=== PATIENT | male | born 1940 | race Caucasian/White ===

== ENCOUNTER 2019-08-26 06:00 | Outpatient (CLI) | payer MEDICARE, OTHER, SELFPAY ==
--- NOTE | 2019-08-29 05:56 | ONC FU_ITS ---
Dr. Moreno Patient Follow-Up Note Patient: Colt Jean Unit #: [id number]: 1940 Dicatated By: Sudarshan Moreno M.D.Date of Visit:Aug 26, 2019 Onc Med Follow-up/Prog Note Chief Complaint: Hemochromatosis. History of Present Illness: This is a 78 year-old man with hereditary hemochromatosis. The hemochromatosis was initially diagnosed in April 2011. His ferritin level was just under 1500 ng/mL. 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 He was started on a phlebotomy program. As of February 2012 the ferritin was down to 96 ng/mL. He had then continued phlebotomies on an every 3-month schedule. He was seen for a followup visit in August 2016. At that time he reported having low energy. He was mildly anemic with hypochromic/microcytic red cell indices. Given those findings, I opted to stop his phlebotomies. They were subsequently restarted, but with the interval decreased to every 6 months. His history includes severe degenerative arthritis, mainly affecting the hips and knees. He underwent total hip arthroplasty on the in right in January 2014 and on the left in April 2014. His other medical illnesses include hypertension, hypertriglyceridemia, and stage III chronic kidney disease. He has a history of smoking 1 pack of cigarettes daily for 40 years. He quit smoking in 2004. INTERIM HISTORY: He is seen for a scheduled visit. He has been feeling good generally. He says his energy is pretty good. Activity has been limited, mainly due to the weather. He has good appetite. He has no fever or night sweats. He has had a little sinus trouble. He has no shortness of breath, cough, or chest pain. He occasionally has heartburn. Bowel function has been adequate with stool softeners. He has no complaints. He currently is not having any significant joint or bone pain. He occasionally has headache. He has no focal neurologic symptoms. Medications: Aspirin 1 (81 mg) Tablet Oral daily, Ativan 1 (0.5 mg) Tablet Oral q 8 hours PRN, Klor-Con M20 1 (20 meq) Tablet, controlled release Oral b.i.d., Magnesium Oxide 1 (400 mg) Capsule Oral daily, Norvasc 1 (10 mg) Tablet Oral daily, Senna-S 1 (8.6-50 mg) Tablet Oral b.i.d., ZyrTEC Allergy 1 (10 mg) Capsule Oral daily Allergies: compazine, Hydrocodone-Acetaminophen, Lisinopril, and OxyCODONE HCl. Review of Systems: Constitutional - His energy is pretty good. Activity is limited due to the weather. Appetite is good and weight is stable. No fever, chills, hot flashes, or night sweats. ECOG score is 1, ENMT - He has a little sinus trouble. No mouth sores. No difficulty swallowing, Hematologic/Lymphatic - No abnormal bruising or bleeding, Respiratory - No shortness of breath. No cough. No pleuritic pain or hemoptysis, Cardiovascular - No angina pain. No palpitations, Gastrointestinal - No nausea or vomiting. He occasionally has heartburn. Bowels have been OK with stool softeners. No blood in the stool or black stools, Genitourinary (M) - No dysuria or hematuria. No urinary frequency. No urgency or incontinence, Musculoskeletal - He currently is not having any significant joint or bone pain, Neurologic - He occasionally has headache. No dizziness. No numbness/paresthesias or other focal neurologic symptoms, Psychiatric - No anxiety or depression. He usually sleeps OK. Vital Signs: Performed on Aug 26, 2019 12:50 Height - 70.00 in Weight - 178 lbs (HIGH) BSA - 1.99 sq.m BMI - 25.54 Temperature - 98.4 F Pulse - 94 /min Respiration - 18 /min BP - 141/82 mm(hg) (HIGH) O2 Sat - 97 % Pain - 0 Physical Examination: Constitutional - He looks good generally, Eyes - Sclerae nonicteric. Conjunctivae clear, ENMT - No lesions noted in the oral cavity, Hematologic/Lymphatic - No cervical, clavicular, or axillary adenopathy, Respiratory - Lungs are clear with good air movement bilaterally, Cardiovascular - Heart rythm is regular. There is a II/ systolic murmur. There is no gallop or rub noted, Abdomen - Soft. Liver and spleen are not enlarged. There is no abdominal mass or ascites noted and there is no inguinal adenopathy, Extremities - No edema. Pedal pulses are palpable bilaterally, Integumentary - There is a raised skin lesion on the left cheek which appears consistent with a basal cell carcinoma, Neurologic - No focal neurologic deficits noted. Lab/Imaging: Test performed on Aug 21, 2019 09:38 Ferritin 89.2 ng/mL % Iron Saturation 27 % Iron, Total 67 mcg/dL TIBC 246 mcg/dL Test performed on Aug 21, 2019 08:59 Glucose 104 mg/dL BUN 13 mg/dL Creatinine 0.97 mg/dL Cr Clearance (Est) 72.74 mL/min Sodium 138 mmol/L Potassium 4.1 mmol/L Chloride 99 mmol/L CO2 25 mmol/L Calcium 10.1 mg/dL Protein, Total 8.1 g/dL Albumin 4.7 g/dL Bilirubin, Total 0.3 mg/dL Alkaline Phosphatase 128 IU/L AST (SGOT) 29 IU/L ALT (SGPT) 35 IU/L WBC 5.8 10^9/L RBC 4.80 10^12/L HGB 13.9 g/dL HCT 42.5 % MCV 88.5 fl MCH 29.0 pg MCHC 32.7 g/dL RDW 14.6 % Platelet Count 131 10^9/L MPV 12.0 fL Neutrophils (Gran) 2.67 10^9/L Lymphocytes 2.33 10^9/L Monocytes 0.43 10^9/L Eosinophils 0.28 10^9/L Basophils 0.08 10^9/L Manual Lymphocytes 40 % Manual Monocytes 7 % Manual Eosinophils 5 % Manual Basophils 1 % Impression: 1. Patient with hereditary hemochromatosis. 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 His ferritin level has come down to an acceptable level with phlebotomy. 2. He has severe degenerative arthritis, but he has had significant improvement following bilateral total hip arthroplasty in 2013. His other medical illnesses include: 3. Hypertension. 4. Hyperlipidemia. 5. Stage III chronic kidney disease. His ferritin level had then remained slightly above target range, and he had continued phlebotomis every 2 months. On his visit in August 2016 he was mildly anemic with hypochromic/microcytic red cell indices. With those findings, I had stopped his phlebotomies. He then continued to have some fatigue, though his hemoglobin level had subsequently recovered to normal. During his further follow-up there was a gradual increase in his ferritin level and transferrin saturation and he had subsequently restarted phlebotomies, but with the frequency reduced to every 6 months. With that schedule his transferrin saturation and serum ferritin have remained in target range. His overall clinical status appears stable. However, he does have a new skin lesion on the left cheek which appears consistent with a basal cell carcinoma. Plan: He will continue on an every 6-month lab and phlebotomy schedule. I will see him again in one year. In the meantime, I will arrange for him to see a surgeon for excision of the skin lesion. Signed By: Sudarshan Moreno M.D. <<Signature on File>>
== END 2019-08-26 06:01 | disposition home or self-care (01) ==
PROVIDERS: Family Provider Physician Assistant Medical; PCP Physician Assistant Medical; Visit Provider Internal Medicine Medical Oncology
DX: E83.110 Hereditary hemochromatosis (principal); C44.319 Basal cell carcinoma of skin of other parts of face; M17.0 Bilateral primary osteoarthritis of knee; E78.1 Pure hyperglyceridemia; I12.9 Hypertensive chronic kidney disease with stage 1 through stage 4 chronic kidney disease, or unspecified chronic kidney disease; N18.3 Chronic kidney disease, stage 3 (moderate); E78.5 Hyperlipidemia, unspecified; Z79.82 Long term (current) use of aspirin; Z87.891 Personal history of nicotine dependence; Z96.643 Presence of artificial hip joint, bilateral
CPT/HCPCS: 99214

== ENCOUNTER → 2019-09-23 12:46 | Outpatient (BNVA) | payer MEDICARE, OTHER, SELFPAY | PROVIDERS: Family Provider Physician Assistant Medical; PCP Physician Assistant Medical; Visit Provider Otolaryngology | DX: L98.9 Disorder of the skin and subcutaneous tissue, unspecified (principal) | CPT/HCPCS: 99204; 99214 ==

== ENCOUNTER 2020-09-21 11:06 | Outpatient (CLI) | payer MEDICARE, OTHER, SELFPAY ==
--- NOTE | 2020-09-21 18:57 | ONC FU_ITS ---
Dr. Moreno Patient Follow-Up Note Patient: Colt Jean Unit #: [id number]: 1940 Dicatated By: Sudarshan Moreno M.D.Date of Visit:Sep 21, 2020 Onc Med Follow-up/Prog Note Chief Complaint: Hemochromatosis. History of Present Illness: This is a 79 year-old man with hereditary hemochromatosis. The hemochromatosis was initially diagnosed in April 2011. His ferritin level was just under 1500 ng/mL. 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 He was started on a phlebotomy program. As of February 2012 the ferritin was down to 96 ng/mL. He had then continued phlebotomies on an every 3-month schedule. He was seen for a followup visit in August 2016. At that time he reported having low energy. He was mildly anemic with hypochromic/microcytic red cell indices. Given those findings, I opted to stop his phlebotomies. They were subsequently restarted, but with the interval decreased to every 6 months. His history includes severe degenerative arthritis, mainly affecting the hips and knees. He underwent total hip arthroplasty on the in right in January 2014 and on the left in April 2014. His other medical illnesses include hypertension, hypertriglyceridemia, and stage III chronic kidney disease. He has a history of smoking 1 pack of cigarettes daily for 40 years. He quit smoking in 2004. INTERIM HISTORY: He has been feeling pretty good generally. He says he does not have a lot of energy, but he is still doing light work. ECOG score is 1. His appetite has been good. He has no fever or night sweats. He has a little bit of sinus drainage. He does not complain of cough and he does not have shortness of breath or chest pain. He has no GI or complaints. His hips tend to get a little sore at night, but they have not otherwise been painful since his hip replacements. He says his knees have been getting a little worse, left more so than right, more due to having a catch then actually being painful. He has just occasional headache. He sometimes has orthostatic dizziness. He has no numbness/paresthesia or other focal neurologic symptoms. Medications: Aspirin 1 (81 mg) Tablet Oral daily, Ativan 1 (0.5 mg) Tablet Oral q 8 hours PRN, Klor-Con M20 1 (20 meq) Tablet, controlled release Oral b.i.d., Magnesium Oxide 1 (400 mg) Capsule Oral daily, Norvasc 1 (10 mg) Tablet Oral daily, Senna-S 1 (8.6-50 mg) Tablet Oral b.i.d., ZyrTEC Allergy 1 (10 mg) Capsule Oral daily Allergies: compazine, Hydrocodone-Acetaminophen, Lisinopril, and OxyCODONE HCl. Vital Signs: Weight is 180 pounds. Blood pressure 126/78, pulse 65, respirations 18, temp 97.6 degrees, oxygen saturation 98%. Physical Examination: Constitutional - He looks good generally, Eyes - Sclerae nonicteric. Conjunctivae clear, ENMT - No lesions noted in the oral cavity, Hematologic/Lymphatic - No cervical, clavicular, or axillary adenopathy, Respiratory - Lungs are clear with good air movement bilaterally, Cardiovascular - Heart rythm is regular. There is a II/ systolic murmur. There is no gallop or rub noted, Abdomen - Soft. Liver and spleen are not enlarged. There is no abdominal mass or ascites noted and there is no inguinal adenopathy, Extremities - No edema, Neurologic - No focal neurologic deficits noted. Lab/Imaging: Test performed on Sep 20, 2020 13:46 HCT 42.5 % HGB 14.4 g/dL Test performed on Sep 20, 2020 08:30 % Iron Saturation 45 % Iron, Total 114 mcg/dL TIBC 253 mcg/dL Test performed on Sep 17, 2020 07:55 Glucose 106 mg/dL BUN 22 mg/dL Creatinine 1.18 mg/dL Cr Clearance (Est) 59.87 mL/min Sodium 137 mmol/L Potassium 4.1 mmol/L Chloride 99 mmol/L CO2 24 mmol/L Calcium 10.4 mg/dL Protein, Total 8.7 g/dL Albumin 4.6 g/dL Bilirubin, Total 0.4 mg/dL Alkaline Phosphatase 121 IU/L AST (SGOT) 36 IU/L ALT (SGPT) 47 IU/L WBC 6.8 10^9/L RBC 4.75 10^12/L MCV 91.8 fl MCH 30.9 pg MCHC 33.7 g/dL RDW 12.9 % Platelet Count 176 10^9/L MPV 11.8 fL Neutrophils (Gran) 3.01 10^9/L Lymphocytes 2.98 10^9/L Monocytes 0.55 10^9/L Eosinophils 0.19 10^9/L Basophils 0.06 10^9/L Manual Lymphocytes 44 % Manual Monocytes 8 % Manual Eosinophils 3 % Manual Basophils 1 % Problem List: 1. Patient with hereditary hemochromatosis. 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 2. He has severe degenerative arthritis, but he has had significant improvement following bilateral total hip arthroplasty in 2013. 3. Hypertension. 4. Hyperlipidemia. 5. Stage III chronic kidney disease. Problems Addressed with this Encounter and Plan: Patient with hereditary hemochromatosis. 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 He has been managed adequately with phlebotomy, currently at 6-month intervals. At this point is clinical status appears stable and his transferrin saturation is within target range. I will keep him on the same schedule with lab and phlebotomy in 6 months and with a follow-up visit in 1 year. Signed By: Sudarshan Moreno M.D. <<Signature on File>>
== END 2020-09-21 11:07 | disposition home or self-care (01) ==
LOC: ONCMED 11:06
PROVIDERS: Family Provider Physician Assistant Medical; PCP Physician Assistant Medical; Visit Provider Internal Medicine Medical Oncology
DX: E83.110 Hereditary hemochromatosis (principal); E78.5 Hyperlipidemia, unspecified; I12.9 Hypertensive chronic kidney disease with stage 1 through stage 4 chronic kidney disease, or unspecified chronic kidney disease; N18.30 Chronic kidney disease, stage 3 unspecified
CPT/HCPCS: 99214

== ENCOUNTER → 2024-08-05 14:45 | Outpatient (BNVA) | payer MEDICARE, OTHER, SELFPAY | PROVIDERS: Family Provider Physician Assistant Medical; PCP Physician Assistant Medical; Referring Provider Family Medicine; Visit Provider Nurse Practitioner Family | DX: D48.5 Neoplasm of uncertain behavior of skin (principal); L72.0 Epidermal cyst; L82.1 Other seborrheic keratosis; D18.01 Hemangioma of skin and subcutaneous tissue; Z08 Encounter for follow-up examination after completed treatment for malignant neoplasm; Z85.828 Personal history of other malignant neoplasm of skin; L57.0 Actinic keratosis | CPT/HCPCS: 11102; 17000; 69100; 99203 ==

== ENCOUNTER 2024-09-04 09:32 | Outpatient (CLI) | payer MEDICARE, OTHER, SELFPAY ==
[2024-09-04 10:17] LABS: Basophils # 0.1 10^3/uL (0.0-0.1); Basophils % 1.5 %; Eosinophils # 0.2 10^3/uL (0.0-0.8); Hematocrit 39.4 % (37-53); Lymphocytes # 1.8 10^3/uL (0.8-4.8); Lymphocytes % 32.7 %; Mean Corpuscular HGB Conc 34.3 g/dL (30-55); Mean Corpuscular Hemoglobin 32.3 pg (27-33); Mean Corpuscular Volume 94.3 fl (82-101); Mean Platelet Volume 12.2 fL (7.4-10.4); Monocytes # 0.4 10^3/uL (0.2-0.9); Monocytes % 8.1 %; Neutrophils # 2.95 10^3/uL (1.8-7.7); Neutrophils % 54.5 %; Nucleated Red Blood Cells % 0 %; Platelet Count 143 10^3/cmm (157-399); Red Blood Count 4.18 10^6/uL (3.85-5.65); Red Cell Distribution Width 12.6 % (12.1-15.1); White Blood Count 5.41 10^3/uL (3.29-11.43)
[2024-09-04 10:36] LABS: Alanine Aminotransferase 23 U/L (0-41); Albumin Level 4.7 g/dL (3.5-5.2); Alkaline Phosphatase 107 U/L (40-130); Anion Gap 13.7 (5-19); Aspartate Amino Transferase 21 U/L (0-40); Blood Urea Nitrogen 22 mg/dL (8-23); Carbon Dioxide 25 mmol/L (22-29); Chloride 105 mmol/L (98-107); Creatine Phosphokinase 124 U/L (39-308); Ferritin 275 ng/mL (30-400); Globulin 3.3 g/dL (1.3-4.6); Glucose 96 mg/dL (65-115); Iron 117 ug/dL (59-158); Osmolality Calculated 291 mOsm/kg (285-295); Percent Saturation 47.5 % (20-50); Potassium 4.7 mmol/L (3.5-5.1); Sodium 139 mmol/L (136-145); Total Bilirubin 0.4 mg/dL (0.15-1.2); Total Iron Binding Capacity 246 mcg/dl; Transferrin 214 mg/dL (200-360); Unsaturated Iron Binding 129 ug/dL (112-347)
== END 2024-09-04 09:33 | disposition home or self-care (01) ==
LOC: LAB 09:42
PROVIDERS: PCP Family Medicine; Visit Provider Dermatology
DX: Z79.899 Other long term (current) drug therapy (principal); E83.110 Hereditary hemochromatosis
CPT/HCPCS: 36415; 80053; 82550; 82728; 83540; 83550; 84466; 85025

== ENCOUNTER → 2024-11-04 14:13 | Outpatient (BNVA) | payer MEDICARE, OTHER, SELFPAY | PROVIDERS: PCP Family Medicine; Visit Provider Dermatology | DX: C44.319 Basal cell carcinoma of skin of other parts of face (principal); C44.311 Basal cell carcinoma of skin of nose; C44.41 Basal cell carcinoma of skin of scalp and neck; L57.0 Actinic keratosis | CPT/HCPCS: 17000; 99214 ==

== ENCOUNTER → 2024-12-02 13:35 | Outpatient (BNVA) | payer MEDICARE, OTHER, SELFPAY | PROVIDERS: PCP Family Medicine; Visit Provider Dermatology | DX: C44.319 Basal cell carcinoma of skin of other parts of face (principal); C44.311 Basal cell carcinoma of skin of nose; C44.41 Basal cell carcinoma of skin of scalp and neck; L57.0 Actinic keratosis | CPT/HCPCS: 17000; 99214 ==

== ENCOUNTER → 2024-12-30 10:37 | Outpatient (BNVA) | payer MEDICARE, OTHER, SELFPAY | PROVIDERS: PCP Family Medicine; Visit Provider Dermatology | DX: C44.319 Basal cell carcinoma of skin of other parts of face (principal); C44.311 Basal cell carcinoma of skin of nose; C44.41 Basal cell carcinoma of skin of scalp and neck; L82.1 Other seborrheic keratosis | CPT/HCPCS: 99214 ==

== ENCOUNTER → 2025-03-16 09:29 | Outpatient (BNVA) | payer MEDICARE, OTHER, SELFPAY | PROVIDERS: PCP Family Medicine; Visit Provider Dermatology | DX: C44.319 Basal cell carcinoma of skin of other parts of face (principal); C44.311 Basal cell carcinoma of skin of nose; C44.41 Basal cell carcinoma of skin of scalp and neck; L72.0 Epidermal cyst; L57.0 Actinic keratosis | CPT/HCPCS: 17000; 99214 ==

== ENCOUNTER → 2025-05-18 11:22 | Outpatient (BNVA) | payer MEDICARE, OTHER, SELFPAY | PROVIDERS: PCP Family Medicine; Visit Provider Dermatology | DX: C44.319 Basal cell carcinoma of skin of other parts of face (principal); C44.311 Basal cell carcinoma of skin of nose; C44.41 Basal cell carcinoma of skin of scalp and neck; C44.212 Basal cell carcinoma of skin of right ear and external auricular canal; L82.1 Other seborrheic keratosis | CPT/HCPCS: 99214 ==